=== PATIENT | male | born 1950 | race Caucasian/White ===

== ENCOUNTER 2020-05-26 10:37 | Day surgery (SDC) | payer BC ==
[~2020-05-26 10:37] MED LIST: ATACAND16 M1 PO; FINASTERIDE5 MG PO; LIPITOR20 M1 PO; MAXZIDE-2537.5 MG/TA PO; METFORMIN500 M2 PO; TAMSULOSIN HCL0.4 MG PO; VITAMIN D32000 UNI1 PO
[2020-05-26] MEDS ORDERED: PERCOCET 5/325M1 TAB PO (13:30)
[2020-05-26 14:28] VITALS: BP 122/72
== END 2020-05-26 14:58 | disposition home or self-care (01) | DRG 355 ==
LOC: ORM 10:37
PROVIDERS: ATTEND Surgery
PROC: 0WQF0ZZ Repair Abdominal Wall, Open Approach (ICD-10-PCS; principal; 2020-05-26)
DX: K42.9 Umbilical hernia without obstruction or gangrene (principal); E11.9 Type 2 diabetes mellitus without complications; I10 Essential (primary) hypertension; Z79.84 Long term (current) use of oral hypoglycemic drugs; Z20.828 Contact with and (suspected) exposure to other viral communicable diseases
CPT/HCPCS: J0131; J1100

== ENCOUNTER 2024-02-09 16:00 | Observation (INO) | payer BC ==
[2024-02-09] VITALS (21 sets, daily range): BP systolic 68–158; BP diastolic 12–100
[~2024-02-09] VITALS: Ht 172.7 cm; Wt 79.8 kg
[~2024-02-09 16:00] MED LIST changes: +PERCOCET 5/325M1 TAB PO; +cefTRIAXone SODIUM 2 GM in SODIUM CHLORIDE 0.9% 100 ML IV SCH
[2024-02-09 16:26] LABS: BASO% 0.7 % (0-3); EOS% 2.5 % (0-8); IMMATURE GRANULOCYTES 0.1 % (0.0-5.0); LYMPH% 19.8 % (15-41); MEAN CELL VOLUME 91.7 fL CALC (80.0-100.0); MEAN CORPUSCULAR HGB 32.8 pG CALC (26.0-32.0); MEAN CORPUSCULAR HGB CONC 35.7 g/dL CAL (32.0-36.0); MONO% 4.9 % (2-13); NEUT# 5.48 thou/uL (1.82-7.42); RED BLOOD COUNT 4.58 mill/uL (4.70-6.10)
[2024-02-09 16:40] LABS: ALBUMIN 4.8 g/dL (3.2-5.0); ALKALINE PHOSPHATASE 92 u/l (38-126); ANION GAP 13 (6-22 (CALC)); BILIRUBIN, TOTAL 1.7 mg/dL (0.2-1.3); BUN 14 mg/dL (8-23); BUN/CREATININE RATIO 13 (12-20 (CALC)); CALCULATED LDLCHOLESTEROL 52 mg/dL (62-129 (CALC)); CARBON DIOXIDE 25 mmol/l (22-30); CHLORIDE 110 mmol/l (95-108); CHOLESTEROL HDL RATIO 2.9 (<4.4 (CALC)); CREATININE 1.1 mg/dL (0.7-1.3); ESTIMATED GFR 70 ML/MIN (>=90 (CALC)); HDL CHOLESTEROL 43 mg/dL (39.0-59.0); POTASSIUM 3.8 mmol/l (3.5-5.1); SGOT/AST 35 u/l (19-48); SODIUM 144 mmol/l (137-146); TOTAL CHOLESTEROL 123 mg/dl (0-199); TOTAL TRIGLYCERIDES 141 mg/dl (0-149); VLDL CHOLESTROL 28 mg/dl (0-38 (CALC))
[2024-02-09 16:45] LABS: INTERNATIONAL NORMALIZED RATIO 1.1 RATIO (0.7-1.3)
[2024-02-09 16:46] LABS: PROTHROMBIN TIME 10.4 SECONDS (9.0-12.5)
[2024-02-09] MEDS ORDERED: SODIUM CHLORIDE 0.9% 500 ML IV ONE (17:10)
[2024-02-09] MEDS ORDERED: cefTRIAXone SODIUM 2 GM in SODIUM CHLORIDE 0.9% 100 ML IV ONE (17:15)
[2024-02-09] MEDS ORDERED: ACETAMINOPHEN 325 MG/TAB PO PRN (17:45)
[2024-02-09] MEDS ORDERED: MAGNESIUM HYDROXIDE 30 ML UDC PO PRN (17:45)
[2024-02-09] MEDS ORDERED: SODIUM CHLORIDE 0.9% 1,000 ML IV PRN (17:45)
[2024-02-09] MEDS ORDERED: DEXTROSE 250 ML IV PRN ×2 (17:45→18:00)
[2024-02-09 17:53] LABS: URINE BILIRUBIN - DIPSTICK Negative (NEGATIVE); URINE BLOOD DIPSTICK Moderate (NEGATIVE); URINE GLUCOSE - DIPSTICK Negative (NEGATIVE); URINE KETONE Negative (NEGATIVE); URINE LEUK ESTERASE Negative (NEGATIVE); URINE NITRITE - DIPSTICK Negative (Negative); URINE PROTEIN - DIPSTICK 100 mg/dL (NEG-TRACE); URINE UROBILINOGEN - DIPSTICK 0.2 E.U./dL (0.2)
[2024-02-09 17:56] LABS: URINE COLOR Yellow
[2024-02-09] MEDS ORDERED: hydrALAZINE HCL 20 MG/ML VIAL(1 ML) IV PRN (18:00)
[2024-02-09 18:01] LABS: URINE RBC 0-2 RBC/hpf (0-5)
[2024-02-09] MEDS ORDERED: GABAPENTIN300 M2 PO (19:53)
[2024-02-09] MEDS ORDERED: INDERAL10 MG PO (19:54)
[2024-02-09] MEDS ORDERED: ARICEPT PO (19:55)
[2024-02-09] MEDS ORDERED: INSULIN LISPRO 100 UNITS/ML ML SC SCH (21:00)
[2024-02-09] MEDS ORDERED: ATORVASTATIN CALCIUM 40 MG/TAB PO SCH (21:00)
[2024-02-09] MEDS ORDERED: ENOXAPARIN SODIUM 40 MG/0.4 ML SYR SC SCH (21:00)
[2024-02-10 00:06] VITALS: BP 125/77
[2024-02-10 04:08] VITALS: BP 120/79
[2024-02-10 05:21] LABS: BASO% 0.7 % (0-3); HEMOGLOBIN 13.9 g/dl (14.0-18.0); IMMATURE GRANULOCYTES 0.1 % (0.0-5.0); MEAN CELL VOLUME 92.6 fL CALC (80.0-100.0); MEAN CORPUSCULAR HGB CONC 35.6 g/dL CAL (32.0-36.0); MONO% 7.8 % (2-13); NEUT# 4.56 thou/uL (1.82-7.42); NEUT% 61.4 % (42-76); RED BLOOD COUNT 4.21 mill/uL (4.70-6.10); RED CELL DISTRI WIDTH 12.1 % (11.5-15.5)
[2024-02-10 05:37] LABS: ALBUMIN 3.9 g/dL (3.2-5.0); BILIRUBIN, TOTAL 1.7 mg/dL (0.2-1.3); CHOLESTEROL HDL RATIO 2.9 (<4.4 (CALC)); CREATININE 0.9 mg/dL (0.7-1.3); MAGNESIUM 1.6 mg/dL (1.6-2.3); POTASSIUM 3.6 mmol/l (3.5-5.1); TOTAL PROTEIN 6.5 g/dL (6.3-8.2)
[2024-02-10] MEDS ORDERED: TAMSULOSIN HCL 0.4 MG CAP PO SCH (08:00)
[2024-02-10 08:02] VITALS: BP 127/88
[2024-02-10] MEDS ORDERED: FINASTERIDE 5 MG/TAB PO SCH (09:00)
[2024-02-10] MEDS ORDERED: cefTRIAXone SODIUM 2 GM in SODIUM CHLORIDE 0.9% 100 ML IV SCH ×2 (09:00→16:00)
[2024-02-10] MEDS ORDERED: CLOPIDOGREL BISULFATE 75 MG/TAB TAB PO SCH (09:00)
[2024-02-10] MEDS ORDERED: ASPIRIN 81 MG/TAB PO SCH (09:00)
[2024-02-10 11:49] VITALS: BP 155/89
[2024-02-10] MEDS ORDERED: ASPIRIN 81 LOW81 MG PO (14:49)
[2024-02-10 17:09] VITALS: BP 147/86
== END 2024-02-10 17:52 | disposition home or self-care (01) | DRG 312 ==
LOC: ED 16:00 → ED-I 17:00 → ED 17:23 → MS2 17:24
PROVIDERS: Nurse Practitioner Family; ADMIT Student in an Organized Health Care Education/Training Program; ATTEND Student in an Organized Health Care Education/Training Program
DX: R55 Syncope and collapse (principal); G93.49 Other encephalopathy; I10 Essential (primary) hypertension; E11.9 Type 2 diabetes mellitus without complications; I65.22 Occlusion and stenosis of left carotid artery; E78.5 Hyperlipidemia, unspecified; G31.9 Degenerative disease of nervous system, unspecified; R90.89 Other abnormal findings on diagnostic imaging of central nervous system; N40.0 Benign prostatic hyperplasia without lower urinary tract symptoms; Z79.84 Long term (current) use of oral hypoglycemic drugs; Z20.822 Contact with and (suspected) exposure to COVID-19
CPT/HCPCS: G0378; J1650; Q9967